=== PATIENT | female | born 1990 | race Caucasian/White ===

== ENCOUNTER 2016-11-23 18:59 | Emergency (ER) | payer MEDICAID ==
[2016-11-23 20:20] VITALS: BP 113/65
--- NOTE | 2016-11-24 01:39 | ER ---
DATE SEEN: 11/23/2016 TIME SEEN: 1915 hours. CHIEF COMPLAINT: Left ankle pain. HISTORY OF PRESENT ILLNESS: This is a 26-year-old female, who fell today landing on the left lower extremity and twisted it inwards, especially the ankle. She complains of inability to bear weight. Pain that is moderate to severe that shoots to the leg. She also had knee bruise after the fall. ALLERGIES: Hydrocodone. REVIEW OF SYSTEMS: No fever. MEDICATIONS: Reviewed. PHYSICAL EXAMINATION: GENERAL: Nontoxic in appearance. VITAL SIGNS: Afebrile. Blood pressure is 134/71. EXTREMITIES: Left lower extremity revealed a bruise on the anterior aspect of the left knee. The left ankle has no effusion or signs of deformity it is extremely tender to palpation on the lateral aspect of the ankle on the foot. DIAGNOSTIC DATA: X-ray: Negative x-ray. IMPRESSION: Sprain, ankle and foot. PLAN: Ice, elevation, compression (with ankle brace), and rest. Crutches were provided, may use ibuprofen as needed. Return to the ED with worsening symptoms. Follow up tita /[id number] MISSY/BRISA
--- NOTE | 2016-11-24 14:56 | CR ---
INDICATION: Pain. LEFT ANKLE: Three views of the left ankle were obtained and revealed no evidence of an acute fracture, dislocation, or other significant bone or joint abnormality. IMPRESSION: Normal left ankle. MTDD
--- NOTE | 2016-11-24 14:57 | CR ---
INDICATION: Pain. LEFT FOOT: Three views of the left foot were obtained and revealed a tiny posterior calcaneal spur with no other bone or joint abnormality. JACKD
== END 2016-11-23 20:15 | disposition home or self-care (01) ==
LOC: FB.ED 18:59
DX: S93.402A Sprain of unspecified ligament of left ankle, initial encounter (principal); S93.602A Unspecified sprain of left foot, initial encounter; S80.02XA Contusion of left knee, initial encounter; Z88.8 Allergy status to other drugs, medicaments and biological substances; X50.1XXA Overexertion from prolonged static or awkward postures, initial encounter
CPT/HCPCS: 73610-LT; 73630-LT; 99282; 99283

== ENCOUNTER 2020-06-24 13:13 | Emergency (ER) | payer MEDICAID ==
[2020-06-24] MEDS ORDERED: Albuterol 8 GM Inhaler INH ONE (13:14)
--- NOTE | 2020-06-24 14:29 | EDM.PDOC ---
ED HPI GENERAL MEDICAL PROBLEM - General Chief Complaint: Respiratory Problem Stated Complaint: SICK Time Seen by Provider: 06/24/20 14:05 Source of Information: Reports: Patient History Limitations: Reports: No Limitations - History of Present Illness INITIAL COMMENTS - FREE TEXT/NARRATIVE: states she has had productive cough for 2-3 day s, last night she developed fever up 101 and body aches , symptoms got worse that she came in the s ppm fever persistent she had to take both tylenol and ibuprofen ' developed chest discomfort with shortness of breath , as she tries to get up from sitting to standing immediately she get short of breath has severe headache with dizziness Onset: Gradual Onset Date: 06/20/20 Duration: Day(s):, Getting Worse Location: Reports: Chest Quality: Reports: Ache Severity: Moderate Improves with: Reports: None Worsens with: Reports: Breathing, Movement Context: Reports: Activity, Sick Contact Associated Symptoms: Reports: Cough, Loss of Appetite, Malaise, Shortness of Breath, Weakness 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 - Related Data Allergies Allergy/AdvReac Type Severity Reaction Status Date / Time hydrocodone [Hydrocodone] Allergy Nausea and Verified 11/23/16 19:15 Vomiting norgestimate-ethinyl Allergy Anaphylactic Verified 11/23/16 19:15 estradiol Shock [From Ortho Tri-Cyclen (28)] control Allergy Anaphylactic Uncoded 11/23/16 19:15 Shock Home Meds: Home Meds Escitalopram [Lexapro] 20 mg PO DAILY 11/23/16 [History] busPIRone [Buspar] 5 mg PO TID PRN 11/23/16 [History] Albuterol Sulfate [Proair Hfa] 8.5 gm IH Q4HR PRN #1 hfa.aer.ad 06/24/20 [Rx] Ascorbate Calcium [Vitamin C] 500 mg PO DAILY #30 tablet 06/24/20 [Rx] Azithromycin [Zithromax] 500 mg PO DAILY #5 tab 06/24/20 [Rx] Benzonatate [Tessalon Perle] 100 mg PO BID #20 capsule 06/24/20 [Rx] Doxycycline [Vibra-Tabs] 100 mg PO Q12HR #20 tab 06/24/20 [Rx] Zinc Sulfate 220 mg PO BID #60 tablet 06/24/20 [Rx] guaiFENesin [Mucinex] 600 mg PO BID #30 tab.er.12h 06/24/20 [Rx] Past Medical History - Past Health History Medical/Surgical History: Denies Medical/Surgical History HEENT History: Reports: Impaired Vision Other Cardiovascular History: low bp HEEL BUFFER History: Reports: , Other (See Below) Other HEEL BUFFER History: DNC @ age 17, gestational diabetes Other Musculoskeletal History: plantar fascitis, locked hip Neurological History: Reports: Other (See Below) 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17 Psychiatric History: Reports: Anxiety, Depression, PTSD, Suicidal Ideation, Other (See Below) Other Psychiatric History: post depression Other Endocrine/Metabolic History: Gestational Diabetes Other Dermatologic History: ACNE - Past Surgical History HEENT Surgical History: Reports: Oral Surgery Social & Family History - Family History Family Medical History: No Pertinent Family History - Caffeine Use Caffeine Use: Reports: Coffee, Soda, Tea ED ROS GENERAL - Review of Systems Review Of Systems: See Below Constitutional: Reports: Fever, Chills, Malaise, Weakness, Fatigue, Night Sweats, Diaphoresis, Decreased Appetite HEENT: Reports: No Symptoms Respiratory: Reports: Shortness of Breath, Cough, Sputum (thick yellow ) Cardiovascular: Reports: No Symptoms Endocrine: Reports: Fatigue GI/Abdominal: Reports: No Symptoms : Reports: No Symptoms Musculoskeletal: Reports: Muscle Pain Skin: Reports: No Symptoms Neurological: Reports: No Symptoms Psychiatric: Reports: No Symptoms Hematologic/Lymphatic: Reports: No Symptoms Immunologic: Reports: No Symptoms ED EXAM, GENERAL - Physical Exam Exam: See Below Exam Limited By: No Limitations General Appearance: Alert, WD/WN, No Apparent Distress, Anxious Eye Exam: Bilateral Eye: EOMI Ears: Normal External Exam Nose: Normal Inspection Throat/Mouth: Normal Oropharynx Head: Atraumatic, Normocephalic Neck: Supple, Non-Tender Respiratory/Chest: Decreased Breath Sounds, Rales, Rhonchi. No: Accessory Muscle Use, Retractions Cardiovascular: Normal Peripheral Pulses, Regular Rate, Rhythm GI/Abdominal: Normal Bowel Sounds, Soft, Non-Tender Back Exam: Full Range of Motion Extremities: Normal Range of Motion Neurological: Alert, Oriented, CN II-XII Intact Psychiatric: Normal Affect Skin Exam: Warm, Dry, Intact Lymphatic: No Adenopathy Course - Vital Signs Last Recorded V/S: Last Vital Signs Temp 36.7 C 06/24/20 18:20 Pulse 117 H 06/24/20 18:20 Resp 18 06/24/20 18:20 BP 113/86 06/24/20 18:20 Pulse Ox 99 06/24/20 18:20 - Orders/Labs/Meds Orders: Active Orders 24 hr Category Date Time Status Ang Chest [CT] Stat Exams 06/24/20 16:13 Taken Chest 1V Frontal [CR] Stat Exams 06/24/20 14:24 Taken Sodium Chloride 0.9% [Normal Saline] 1,000 ml Med 06/24/20 14:30 Active IV ASDIRECTED Isolation [COMM] Routine Oth 06/24/20 14:24 Ordered Medication Orders Sodium Chloride (Normal Saline) 1,000 mls @ 999 mls/hr IV ASDIRECTED NAYA Last Admin: 06/24/20 15:00 Dose: 999 mls/hr Documented by: ANDREW Labs: Laboratory Tests 06/24/20 06/24/20 06/24/20 Range/Units 14:34 14:34 14:34 WBC 14.8 H (3.0-10.3) x10-3/uL RBC 4.34 (3.60-5.20) x10(6)uL Hgb 12.3 (11.4-15.5) g/dL Hct 37.3 (34.2-48.2) % MCV 86.0 (76.7-100.5) fL MCH 28.4 (23.9-33.9) pg MCHC 33.0 (31.9-34.8) g/dL RDW 13.0 (12.3-16.5) % Plt Count 225 (151-488) x10(3)uL MPV 8.3 (7.1-12.4) fL Add Manual Diff Yes Neutrophils % (Manual) 89 H (46-82) % Lymphocytes % (Manual) 8 L (13-37) % Monocytes % (Manual) 3 L (4-12) % D-Dimer, Quantitative 0.92 H (0.0-0.59) mg/LFEU Sodium (135-145) mmol/L Potassium (3.5-5.3) mmol/L Chloride (100-110) mmol/L Carbon Dioxide (21-32) mmol/L BUN (7-18) mg/dL Creatinine (0.55-1.02) mg/dL Est Cr Clr Drug Dosing Estimated GFR (MDRD) (>60) BUN/Creatinine Ratio (9-20) Glucose (80-116) mg/dL Calcium (8.6-10.2) mg/dL Total Bilirubin (0.1-1.3) mg/dL AST (5-25) IU/L ALT (12-36) U/L Alkaline Phosphatase (56-112) IU/L C-Reactive Protein 18.0 H* (0.5-0.9) mg/dL Total Protein (6.0-8.0) g/dL Albumin (3.5-5.2) g/dL Globulin g/dL Albumin/Globulin Ratio SARS-CoV-2 RNA (GERARDO) (NEGATIVE) 06/24/20 06/24/20 Range/Units 14:34 15:10 WBC (3.0-10.3) x10-3/uL RBC (3.60-5.20) x10(6)uL Hgb (11.4-15.5) g/dL Hct (34.2-48.2) % MCV (76.7-100.5) fL MCH (23.9-33.9) pg MCHC (31.9-34.8) g/dL RDW (12.3-16.5) % Plt Count (151-488) x10(3)uL MPV (7.1-12.4) fL Add Manual Diff Neutrophils % (Manual) (46-82) % Lymphocytes % (Manual) (13-37) % Monocytes % (Manual) (4-12) % D-Dimer, Quantitative (0.0-0.59) mg/LFEU Sodium 139 (135-145) mmol/L Potassium 3.8 (3.5-5.3) mmol/L Chloride 105 (100-110) mmol/L Carbon Dioxide 26 (21-32) mmol/L BUN 11 (7-18) mg/dL Creatinine 0.9 (0.55-1.02) mg/dL Est Cr Clr Drug Dosing TNP Estimated GFR (MDRD) > 60 (>60) BUN/Creatinine Ratio 12.2 (9-20) Glucose 92 (80-116) mg/dL Calcium 8.3 L (8.6-10.2) mg/dL Total Bilirubin 0.5 (0.1-1.3) mg/dL AST 19 (5-25) IU/L ALT 28 (12-36) U/L Alkaline Phosphatase 90 (56-112) IU/L C-Reactive Protein (0.5-0.9) mg/dL Total Protein 7.3 (6.0-8.0) g/dL Albumin 3.0 L (3.5-5.2) g/dL Globulin 4.3 g/dL Albumin/Globulin Ratio 0.7 SARS-CoV-2 RNA (GERARDO) Negative (NEGATIVE) Meds: Medications Generic Name Dose Route Start Last Admin Trade Name Freq PRN Reason Stop Dose Admin Sodium Chloride 1,000 mls @ 999 mls/hr 06/24/20 14:30 06/24/20 15:00 Normal Saline IV 999 mls/hr ASDIRECTED NAYA Administration Discontinued Medications Generic Name Dose Route Start Last Admin Trade Name Freq PRN Reason Stop Dose Admin Ceftriaxone Sodium 1 gm/ 50 mls @ 200 mls/hr 06/24/20 15:22 06/24/20 15:28 Sodium Chloride IV 06/24/20 15:36 200 mls/hr ONETIME ONE Administration Azithromycin 500 mg/ Sodium 250 mls @ 250 mls/hr 06/24/20 15:22 06/24/20 15:28 Chloride IV 06/24/20 16:21 250 mls/hr ONETIME ONE Administration Iopamidol 100 ml 06/24/20 16:18 06/24/20 16:42 Isovue-370 (76%) IV 06/24/20 16:19 73 ml . DIRECTED ONE Administration Sodium Chloride 10 ml 06/24/20 14:55 06/24/20 17:29 Saline Flush FLUSH 06/24/20 14:56 10 ml ASDIRECTED ONE Administration - Re-Assessments/Exams Free Text/Narrative Re-Assessment/Exam: 06/24/20 17:21 pt started on IVF and labs did no require oxygen Labs : COVID negative , Influenza negative Labs : elevated WBC with left shift , 06/24/20 17:24 Elevated CRP noted and chest xray negative Ddimer was elevated CT chest done: pt had bilateral infiltrates in the lung bases will continue to treat as pneumonia Departure - Departure Time of Disposition: 18:15 Disposition: Home, Self-Care 01 Condition: Fair Clinical Impression: Community acquired pneumonia, SOB (shortness of breath) on exertion, Fever - Discharge Information *PRESCRIPTION DRUG MONITORING PROGRAM REVIEWED*: Not Applicable *COPY OF PRESCRIPTION DRUG MONITORING REPORT IN PATIENT MAIKEL: Not Applicable Prescriptions: guaiFENesin [Mucinex] 600 mg PO BID #30 tab.er.12h Albuterol Sulfate [Proair Hfa] 8.5 gm IH Q4HR PRN #1 hfa.aer.ad PRN Reason: Shortness Of Breath Benzonatate [Tessalon Perle] 100 mg PO BID #20 capsule Doxycycline [Vibra-Tabs] 100 mg PO Q12HR #20 tab Ascorbate Calcium [Vitamin C] 500 mg PO DAILY #30 tablet Zinc Sulfate 220 mg PO BID #60 tablet Azithromycin [Zithromax] 500 mg PO DAILY #5 tab Instructions: Community-Acquired Pneumonia, Adult, [id number] Referrals: PCP,None [Primary Care Provider] - Forms: ED Department Discharge Additional Instructions: Increase fluid intake make a follow up appointment with your PCP if symptoms do not resolve you will need to get another COVID test in 5-7 days Sepsis Event Note (ED) - Focused Exam Vital Signs: Vital Signs Temp Pulse Resp BP Pulse Ox 06/24/20 18:20 36.7 C 117 H 18 113/86 99 06/24/20 17:24 36.8 C 119 H 18 118/60 99 06/24/20 13:14 36.7 C 111 H 23 H 123/75 99 - My Orders Last 24 Hours: My Active Orders 06/24/20 14:24 Chest 1V Frontal [CR] Stat Isolation [COMM] Routine 06/24/20 14:30 Sodium Chloride 0.9% [Normal Saline] 1,000 ml IV ASDIRECTED 06/24/20 16:13 Ang Chest [CT] Stat - Assessment/Plan Last 24 Hours: My Active Orders 06/24/20 14:24 Chest 1V Frontal [CR] Stat Isolation [COMM] Routine 06/24/20 14:30 Sodium Chloride 0.9% [Normal Saline] 1,000 ml IV ASDIRECTED 06/24/20 16:13 Ang Chest [CT] Stat
[2020-06-24] MEDS ORDERED: Sodium Chloride 0.9% 1,000 ML IV SCH (14:30)
[2020-06-24] MEDS: Sodium Chloride 0.9% 10 ML Syringe FLUSH ONE ×2 (14:55→17:29)
[2020-06-24] MEDS ORDERED: Azithromycin 500 MG in Sodium Chloride 0.9% 250 ML IV ONE (15:22)
[2020-06-24] MEDS ORDERED: cefTRIAXone 1 GM in Sodium Chloride 0.9% 50 ML IV ONE (15:22)
[2020-06-24] MEDS ORDERED: Iopamidol 755 Mg/ML 100 ML Bottle IV ONE (16:18)
[2020-06-24 19:07] VITALS: BP 113/86; PULSE 117
--- NOTE | 2020-06-25 11:12 | CR ---
INDICATION: Fever, pneumonia. CHEST ONE VIEW: Portable AP upright view of the chest 06/24/20 - no comparisons. The heart and mediastinum were felt to be unremarkable. There appears to be patchy infiltration at the lung bases which may be on the basis of bibasilar pneumonia. Costophrenic angles were not well visualized possibly due to the infiltrate rather than pleuritis. COVID-19 should be excluded. No other acute abnormality was suggested. IMPRESSION: Findings are compatible with bibasilar pneumonia - correlate clinically. MTDD
== END 2020-06-24 18:45 | disposition home or self-care (01) ==
LOC: FB.ED 13:13
DX: J18.9 Pneumonia, unspecified organism (principal); F41.9 Anxiety disorder, unspecified; F32.9 Major depressive disorder, single episode, unspecified; Z20.828 Contact with and (suspected) exposure to other viral communicable diseases; Z88.5 Allergy status to narcotic agent; Z88.8 Allergy status to other drugs, medicaments and biological substances; Z79.899 Other long term (current) drug therapy
CPT/HCPCS: 36415; 71045; 71275; 80053; 85025; 85379; 86140; 87635; 87804; 96365; 96367; 99284; 99285; A9270; J0456; J0696; J7030; J7050; Q9967; U0002

== ENCOUNTER 2020-08-11 22:08 | Emergency (ER) | payer MEDICAID ==
[2020-08-11] MEDS ORDERED: Ibuprofen 600 MG Tab PO ONE (22:44)
--- NOTE | 2020-08-11 22:48 | EDM.PDOC ---
ED HPI GENERAL MEDICAL PROBLEM - General Chief Complaint: Upper Extremity Injury/Pain Stated Complaint: RIGHT ARM Time Seen by Provider: 08/11/20 22:45 Source of Information: Reports: Patient History Limitations: Reports: No Limitations - History of Present Illness INITIAL COMMENTS - FREE TEXT/NARRATIVE: Patient slipped on ice @1 hour ago and landed on her right wrist. She is c omplaining of right wrist pain that radiates to fingertips. She is right hand dominant. Denies weakness, numbness, or tingling. Onset: Today Duration: Hour(s): (1) Location: Reports: Upper Extremity, Right Severity: Moderate Right Wrist Pain Score (Numeric/FACES): 8 - Related Data Allergies Allergy/AdvReac Type Severity Reaction Status Date / Time hydrocodone [Hydrocodone] Allergy Nausea and Verified 11/23/16 19:15 Vomiting norgestimate-ethinyl Allergy Anaphylactic Verified 11/23/16 19:15 estradiol Shock [From Ortho Tri-Cyclen (28)] control Allergy Anaphylactic Uncoded 11/23/16 19:15 Shock Home Meds: Home Meds Escitalopram [Lexapro] 20 mg PO DAILY 11/23/16 [History] busPIRone [Buspar] 5 mg PO TID PRN 11/23/16 [History] Albuterol Sulfate [Proair Hfa] 8.5 gm IH Q4HR PRN #1 hfa.aer.ad 06/24/20 [Rx] Ascorbate Calcium [Vitamin C] 500 mg PO DAILY #30 tablet 06/24/20 [Rx] Azithromycin [Zithromax] 500 mg PO DAILY #5 tab 06/24/20 [Rx] Benzonatate [Tessalon Perle] 100 mg PO BID #20 capsule 06/24/20 [Rx] Doxycycline [Vibra-Tabs] 100 mg PO Q12HR #20 tab 06/24/20 [Rx] Zinc Sulfate 220 mg PO BID #60 tablet 06/24/20 [Rx] guaiFENesin [Mucinex] 600 mg PO BID #30 tab.er.12h 06/24/20 [Rx] Past Medical History HEENT History: Reports: Impaired Vision Other Cardiovascular History: low bp 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: , Other (See Below) Other WORKSITE WELLNESS PRACTITIONER History: DNC @ age 17, gestational diabetes Other Musculoskeletal History: plantar fascitis, locked hip Neurological History: Reports: Other (See Below) 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17 Psychiatric History: Reports: Anxiety, Depression, PTSD, Suicidal Ideation, Other (See Below) Other Psychiatric History: post depression Other Endocrine/Metabolic History: Gestational Diabetes Other Dermatologic History: ACNE - Infectious Disease History Infectious Disease History: Reports: Chicken Pox, Shingles - Past Surgical History HEENT Surgical History: Reports: Oral Surgery Social & Family History - Family History Family Medical History: No Pertinent Family History - Caffeine Use Caffeine Use: Reports: Coffee, Soda, Tea - Recreational Drug Use Recreational Drug Use: No Review of Systems - Review of Systems Review Of Systems: Comprehensive ROS is negative, except as noted in HPI. ED EXAM, GENERAL - Physical Exam Exam: See Below Exam Limited By: No Limitations General Appearance: Alert, WD/WN, No Apparent Distress Nose: Normal Inspection Head: Atraumatic, Normocephalic Neck: Full Range of Motion Respiratory/Chest: No Respiratory Distress Peripheral Pulses: 2+: Radial (R) Back Exam: Full Range of Motion Extremities: Other (tenderness, swelling, and ecchymosis to dorsum of lateral right wrist, no deformities) Neurological: Alert, No Motor/Sensory Deficits Psychiatric: Normal Affect, Normal Mood Skin Exam: Warm, Dry, Intact Course - Vital Signs Last Recorded V/S: Last Vital Signs Temp 36.6 C 08/11/20 22:08 Pulse 106 H 08/11/20 22:08 Resp 17 08/11/20 22:08 BP 113/72 08/11/20 22:08 Pulse Ox 98 08/11/20 22:08 - Orders/Labs/Meds Orders: Active Orders 24 hr Category Date Time Status Wrist Comp Min 3V Rt [CR] Stat Exams 08/11/20 22:21 Taken Meds: Medications Discontinued Medications Generic Name Dose Route Start Last Admin Trade Name Freq PRN Reason Stop Dose Admin Ibuprofen 600 mg 08/11/20 22:44 08/11/20 22:48 Motrin PO 08/11/20 22:45 600 mg ONETIME ONE Administration - Radiology Interpretation Free Text/Narrative:: Right wrist xray: No fracture, dislocation, or destructive lesion of bone is seen. No arthritic changes or soft tissue abnormalities are identified. IMPRESSION: Negative right wrist radiographs. HILTON THAO MD [facility] Dictated by: Harman Thao MD @ 08/11/2020 22:56:24 Departure - Departure Time of Disposition: 23:01 Disposition: Home, Self-Care 01 Condition: Good Clinical Impression: Right wrist sprain Qualifiers: Encounter type: initial encounter Qualified Code(s): S63.501A - Unspecified sprain of right wrist, initial encounter - Discharge Information *PRESCRIPTION DRUG MONITORING PROGRAM REVIEWED*: No *COPY OF PRESCRIPTION DRUG MONITORING REPORT IN PATIENT MAIKEL: Not Applicable Instructions: Wrist Sprain, Adult Forms: ED Department Discharge Additional Instructions: Ice the area affected. Take OTC Ibuprofen as needed to control pain. Wear the splint as much as possible for 1 week. Follow up with Orthopedic Surgery if still having pain in 1 week. Sepsis Event Note (ED) - Evaluation Sepsis Screening Result: No Definite Risk - Focused Exam Vital Signs: Vital Signs Temp Pulse Resp BP Pulse Ox 08/11/20 22:08 36.6 C 106 H 17 113/72 98 - My Orders Last 24 Hours: My Active Orders 08/11/20 22:21 Wrist Comp Min 3V Rt [CR] Stat - Assessment/Plan Last 24 Hours: My Active Orders 08/11/20 22:21 Wrist Comp Min 3V Rt [CR] Stat
[2020-08-11 23:26] VITALS: BP 117/66; PULSE 86
== END 2020-08-11 23:20 | disposition home or self-care (01) ==
LOC: FB.ED 22:08
DX: S63.501A Unspecified sprain of right wrist, initial encounter (principal); Z88.5 Allergy status to narcotic agent; Z88.8 Allergy status to other drugs, medicaments and biological substances; W00.0XXA Fall on same level due to ice and snow, initial encounter; Y92.410 Unspecified street and highway as the place of occurrence of the external cause
CPT/HCPCS: 73110-RT; 99282; 99283-25; A9270-GY

== ENCOUNTER 2020-11-27 09:40 | Day surgery (SDC) | payer MEDICAID ==
[~2020-11-27 09:40] MED LIST: Lactated Ringers 1,000 ML IV SCH; Sodium Chloride 0.9% 10 ML Syringe FLUSH PRN; ceFAZolin 2 GM in Premix Bag 1 BAG IV ONE
[2020-11-27] MEDS ORDERED: Ondansetron 4 MG/2 ML SDV IVPUSH ONE (09:41)
[2020-11-27] MEDS ORDERED: Midazolam 1 MG/ML 2 ML SDV IV ONE (09:41)
[2020-11-27] MEDS ORDERED: Propofol 200 MG/20 ML SDV IV ONE (09:41)
[2020-11-27] MEDS ORDERED: Phenylephrine 0.5% Nasal Spray 15 ML Bot NAS ONE (09:41)
[2020-11-27] MEDS ORDERED: Dexmedetomidine 200 MCG/2 ML SDV IV ONE (09:41)
[2020-11-27] MEDS ORDERED: Ketorolac 30 MG/ML SDV IVPUSH ONE (09:41)
[2020-11-27] MEDS ORDERED: Lidocaine 1% PF 2 ML SDV INJECT ONE (09:41)
[2020-11-27] MEDS ORDERED: fentaNYL 100 MCG/2 ML SDV IV ONE (09:41)
--- NOTE | 2020-11-27 11:46 | PCM.HPR ---
H & P Addendum review - H & P Addendum Review Date of Original H & P: 11/16/20 Date Reviewed: 11/27/20 Time Reviewed: 11:30 Patient was Examined: No Changes
[2020-11-27] MEDS ORDERED: Bupivacaine 0.25% 30 ML SDV INJECT ONE ×2 (12:01)
[2020-11-27] MEDS ORDERED: Lidocaine 1% with EPINEPHrine 1:100,000 20 ML MDV INJECT ONE (12:01)
--- NOTE | 2020-11-27 12:39 | PCM.OPNOTE ---
- General Post-Op/Procedure Note Operative Procedure(s): Umbilical Hernia Repair Pre Op Diagnosis: Umbilical Hernia Post-Op Diagnosis: Same Anesthesia Technique: Local, MAC Primary Surgeon: Mando Piña Anesthesia Provider: Heena Carson EBL in mLs: 5 Complications: None Condition: Good
[2020-11-27 14:16] VITALS: BP 93/58; PULSE 82
--- NOTE | 2020-11-28 09:32 | OR ---
DATE OF OPERATION: 11/27/2020 SURGEON: Mando Piña MD PREOPERATIVE DIAGNOSIS: Umbilical hernia. POSTOPERATIVE DIAGNOSIS: Umbilical hernia. PROCEDURE: Umbilical hernia repair. ANESTHESIA: Local MAC. DESCRIPTION OF PROCEDURE: The patient was brought to the operating room. A time-out was performed. The abdomen was prepped and draped sterilely. 50:50 mixture of 1% Lidocaine with epinephrine and 0.25% Marcaine was used for local anesthesia. An infraumbilical incision was made and subcutaneous tissue dissected off the fascia and hernia contents. Preperitoneal fat was protruding through the defect. I was able to free this up and reduce it back below the fascia to keep it from interfering with the surgery. The fascial edges were cleared circumferentially. The fascial defect is approximately 1 cm and has good healthy edges and can be closed primarily without mesh. This was done so using #0 Prolene in a [id number] fashion providing a tension-free repair. The umbilical skin was secured to the fascia with #3-0 Vicryl. The subcutaneous tissue was reapproximated with #3-0 Vicryl. The skin was closed with a running #4-0 Vicryl subcuticular suture. Benzoin and Steri-Strips were placed and a sterile dressing applied. The patient tolerated the procedure well. Estimated blood loss was less than 5 mL. She returned to postanesthesia in stable condition. /[id number] SADIE/BRISA
== END 2020-11-27 14:40 | disposition home or self-care (01) ==
LOC: FB.SDS 09:40
PROVIDERS: ATTEND Surgery
DX: K42.9 Umbilical hernia without obstruction or gangrene (principal); Z88.8 Allergy status to other drugs, medicaments and biological substances; Z87.891 Personal history of nicotine dependence; Z79.899 Other long term (current) drug therapy
CPT/HCPCS: 00750; 49585; 81025; A9270; J0690; J1885; J2250; J2405; J2704; J3010; J3490; J7120

== ENCOUNTER 2021-03-02 13:27 | Emergency (ER) | payer MEDICAID ==
--- NOTE | 2021-03-02 13:45 | EDM.PDOC ---
ED HPI GENERAL MEDICAL PROBLEM - General Stated Complaint: FOOT INJURY Time Seen by Provider: 03/02/21 13:30 Source of Information: Reports: Patient History Limitations: Reports: No Limitations - History of Present Illness INITIAL COMMENTS - FREE TEXT/NARRATIVE: 30-year-old lady came to the emergency department for evaluation of right foot pain. She initially sought evaluation approximately 1 month ago when the injury occurred. She states that she was stepping up on a wooden ladder which had very thin slots and her distal right foot twisted as she tried to step up on the slot because any significant amount of pain at the distal lateral aspect just proximal to the right pinky toe. She was told that she likely had a bruise and that she should take ibuprofen and rest. She has not had any improvement over the last 4 weeks so she came in for further evaluation. She denies any other symptoms including flulike symptoms, cough, nausea, vomiting, chest pain, shortness of breath, change in bowel or bladder habits. - Related Data Allergies Allergy/AdvReac Type Severity Reaction Status Date / Time norgestimate-ethinyl Allergy Anaphylactic Verified 11/14/20 13:33 estradiol Shock [From Ortho Tri-Cyclen (28)] hydrocodone [Hydrocodone] AdvReac Nausea and Verified 11/27/20 10:20 Vomiting control Allergy Anaphylactic Uncoded 11/27/20 10:20 Shock Home Meds: Home Meds Escitalopram [Lexapro] 20 mg PO DAILY 11/23/16 [History] busPIRone [Buspar] 5 mg PO TID PRN 11/23/16 [History] Ascorbate Calcium [Vitamin C] 500 mg PO DAILY #30 tablet 06/24/20 [Rx] Azithromycin [Zithromax] 500 mg PO DAILY #5 tab 06/24/20 [Rx] Benzonatate [Tessalon Perle] 100 mg PO BID #20 capsule 06/24/20 [Rx] Doxycycline [Vibra-Tabs] 100 mg PO Q12HR #20 tab 06/24/20 [Rx] Zinc Sulfate 220 mg PO BID #60 tablet 06/24/20 [Rx] guaiFENesin [Mucinex] 600 mg PO BID #30 tab.er.12h 06/24/20 [Rx] Albuterol Sulfate [Proair Hfa] 2 puff IH Q4HR PRN 11/26/20 [History] FLUoxetine HCl [Fluoxetine HCl] 40 mg PO DAILY 11/26/20 [History] Fluticasone Propionate [Flovent HFA 110 MCG] 2 puff INH BID 11/26/20 [History] clonazePAM [Clonazepam] 1 mg PO ASDIRECTED PRN 11/26/20 [History] Past Medical History - Past Health History Medical/Surgical History: Denies Medical/Surgical History HEENT History: Reports: Impaired Vision Cardiovascular History: Reports: None Respiratory History: Reports: Asthma Genitourinary History: Reports: None WARPER FIXER History: Reports: , Other (See Below) Other WARPER FIXER History: DNC @ age 17, gestational diabetes Neurological History: Reports: Other (See Below) 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17 Psychiatric History: Reports: Anxiety, Depression, PTSD, Suicidal Ideation Endocrine/Metabolic History: Reports: Other (See Below) Other Endocrine/Metabolic History: Gestational Diabetes - Infectious Disease History Infectious Disease History: Reports: Chicken Pox, Shingles - Past Surgical History HEENT Surgical History: Reports: Oral Surgery Social & Family History - Family History Family Medical History: No Pertinent Family History - Caffeine Use Caffeine Use: Reports: Coffee, Soda, Tea Review of Systems - Review of Systems Review Of Systems: See Below Constitutional: Reports: No Symptoms Eyes: Reports: No Symptoms Ears: Reports: No Symptoms Nose: Reports: No Symptoms Mouth/Throat: Reports: No Symptoms Respiratory: Reports: No Symptoms Cardiovascular: Reports: No Symptoms GI/Abdominal: Reports: No Symptoms Genitourinary: Reports: No Symptoms Musculoskeletal: Reports: Foot Pain Skin: Reports: No Symptoms Neurological: Reports: No Symptoms Psychiatric: Reports: No Symptoms ED EXAM, GENERAL - Physical Exam Exam: See Below Exam Limited By: No Limitations General Appearance: Alert, WD/WN, No Apparent Distress Eye Exam: Bilateral Eye: EOMI Head: Atraumatic, Normocephalic Neck: Normal Inspection Respiratory/Chest: No Respiratory Distress Cardiovascular: Normal Peripheral Pulses, Regular Rate, Rhythm, No Murmur Peripheral Pulses: 2+: Radial (L), Radial (R), Dorsalis Pedis (L), Dorsalis Pedis (R) GI/Abdominal: Normal Bowel Sounds Back Exam: Normal Inspection Extremities: Other (Patient has no loss of sensation in the right foot, she is able to move and flex her toes and range of motion of the ankles within normal limits. There is significant tenderness to palpation on the plantar surface over the distal fifth metatarsal, no obvious swelling or ecchymosis) Neurological: Alert, Oriented, CN II-XII Intact, Normal Cognition Psychiatric: Normal Affect, Normal Mood Skin Exam: Warm, Dry, Intact Course - Vital Signs Text/Narrative:: Review of x-ray shows no obvious fracture and no dislocation. Additional consultation with the patient shows that she has not been wearing the walking boot that she was given when she recently injured her foot. - Orders/Labs/Meds Orders: Active Orders 24 hr Category Date Time Status Foot Comp Min 3V Rt [CR] Stat Exams 03/02/21 13:39 Taken Departure - Departure Time of Disposition: 15:03 Disposition: Home, Self-Care 01 Condition: Good Clinical Impression: Foot injury - Discharge Information *PRESCRIPTION DRUG MONITORING PROGRAM REVIEWED*: Not Applicable *COPY OF PRESCRIPTION DRUG MONITORING REPORT IN PATIENT MAIKEL: Not Applicable Instructions: Crush Injury of the Foot Additional Instructions: Patient encouraged to rest, ice, elevate, compress, alternate Tylenol and ibuprofen while awake for pain control. Patient encouraged to wear the walking boot she was given when she is up and walking around and to use the Mitch bandage when resting. Patient given note to return to work tomorrow. - My Orders Last 24 Hours: My Active Orders 03/02/21 13:39 Foot Comp Min 3V Rt [CR] Stat - Assessment/Plan Last 24 Hours: My Active Orders 03/02/21 13:39 Foot Comp Min 3V Rt [CR] Stat
[2021-03-02 15:58] VITALS: BP 111/60; PULSE 73
== END 2021-03-02 15:30 | disposition home or self-care (01) ==
LOC: FB.ED 13:27
DX: S99.921A Unspecified injury of right foot, initial encounter (principal); Z88.5 Allergy status to narcotic agent; Z88.8 Allergy status to other drugs, medicaments and biological substances; X50.1XXA Overexertion from prolonged static or awkward postures, initial encounter
CPT/HCPCS: 73630-RT; 99283-25

== ENCOUNTER 2022-03-15 09:38 | Emergency (ER) | payer MEDICAID ==
[2022-03-15 10:01] VITALS: BP 120/73; PULSE 89
[2022-03-15] MEDS ORDERED: cefTRIAXone 1 GM Vial IM ONE (10:15)
== END 2022-03-15 10:32 | disposition home or self-care (01) ==
LOC: FB.ED 09:38
DX: N39.0 Urinary tract infection, site not specified (principal); S30.1XXA Contusion of abdominal wall, initial encounter; Z88.5 Allergy status to narcotic agent; Z88.8 Allergy status to other drugs, medicaments and biological substances; W22.09XA Striking against other stationary object, initial encounter
CPT/HCPCS: 81001; 87086; 87088; 87186; 96372; 99283; J0696

== ENCOUNTER 2025-01-22 08:22 | Emergency (ER) | payer MEDICAID ==
[2025-01-22 08:54] LABS: GLUCOSE,URINE NORMAL (NORMAL); OCCULT BLOOD,URINE LARGE (NEGATIVE)
[2025-01-22 08:55] LABS: APPEARANCE,URINE SLIGHTLY CLOUDY (CLEAR)
[2025-01-22 09:03] LABS: SQUAMOUS EPITHELIAL CELLS,UR FEW (NS,R,O)
[2025-01-22 09:21] VITALS: BP 113/68; PULSE 83
== END 2025-01-22 09:21 | disposition home or self-care (01) ==
LOC: FB.ED 08:22
DX: N39.0 Urinary tract infection, site not specified (principal); F17.210 Nicotine dependence, cigarettes, uncomplicated; Z88.5 Allergy status to narcotic agent; Z88.8 Allergy status to other drugs, medicaments and biological substances; Z79.899 Other long term (current) drug therapy
CPT/HCPCS: 81001; 81025; 87086; 87088; 87186; 99283

== ENCOUNTER 2025-05-25 11:12 | Emergency (ER) | payer MEDICAID ==
[2025-05-25 12:07] LABS: BASOPHILS ABSOLUTE AUTO 0.0 x10-3/uL (0.0-0.1); BASOPHILS PERCENT AUTO 0.5 % (0.2-1.5); EOSINOPHILS ABSOLUTE AUTO 0.0 x10-3/uL (0.0-0.8); EOSINOPHILS PERCENT AUTO 0.5 % (0.6-8.1); LYMPHOCYTES ABSOLUTE AUTO 1.2 x10-3/uL (1.0-4.4); LYMPHOCYTES PERCENT AUTO 14.3 % (18.4-52.1); MEAN PLATELET VOLUME 8.2 fL (7.1-12.4); MONOCYTES ABSOLUTE AUTO 0.3 x10-3/uL (0.3-1.0); MONOCYTES PERCENT AUTO 3.8 % (4.4-15.7); NEUTROPHILS ABSOLUTE AUTO 6.8 x10-3/uL (1.5-6.3); NEUTROPHILS PERCENT AUTO 80.9 % (30.8-76.2); PLATELET COUNT,PLT 239 x10(3)uL (151-488); RED BLOOD CELL COUNT 4.64 x10(6)uL (3.60-5.20); RED CELL DISTRIBUTION WIDTH 12.5 % (12.3-16.5); WHITE BLOOD CELL COUNT,WBC 8.4 x10-3/uL (3.0-10.3)
[2025-05-25 12:13] LABS: BLOOD UREA NITROGEN,BUN 7 mg/dL (7-18); CARBON DIOXIDE,CO2 26 mmol/L (21-32); CHLORIDE,CL 105 mmol/L (100-110); CREATININE 0.8 mg/dL (0.55-1.02); ESTIMATED GFR 98 mL/min (>60); GLUCOSE RANDOM 138 mg/dL (80-116); POTASSIUM,K 3.7 mmol/L (3.5-5.3); SODIUM,NA 142 mmol/L (135-145)
[2025-05-25 12:19] LABS: A/G RATIO 1.0; ALANINE AMINOTRANSFERASE,ALT 25 U/L (12-36); ASPARTATE AMNIOTRANSFERASE,AST 18 IU/L (5-25); BILIRUBIN TOTAL 0.4 mg/dL (0.1-1.3); PROTEIN TOTAL,TP 7.3 g/dL (6.0-8.0)
[2025-05-25 12:24] LABS: INR 0.96 (1.00-1.24)
[2025-05-25 13:30] VITALS: BP 104/57; PULSE 99
== END 2025-05-25 12:36 | disposition home or self-care (01) ==
LOC: FB.ED 11:12
DX: R07.89 Other chest pain (principal); F43.0 Acute stress reaction; Z88.8 Allergy status to other drugs, medicaments and biological substances; Z79.899 Other long term (current) drug therapy
CPT/HCPCS: 36415; 71045; 80053; 84484; 85025; 85610; 93005; 99285; A9270; 93010; 99283